=== PATIENT | male | born 2000 | race African-American/Black ===

== ENCOUNTER 2022-07-29 21:58 | Emergency (ER) | payer SELFPAY ==
[2022-07-29 23:42] LABS: #Eosinphils 0.2 thou/uL (0.0-0.7); #Lymphocytes 2.5 thou/uL (1.20-3.40); %Basophils 0.7 % (0.0-1.0); %Eosinophils 2.7 % (0.0-10.0); %Lymphocytes 37.1 % (21.0-51.0); %Monocytes 14.9 % (0.0-10.0); %Neutrophils 44.6 % (42.0-75.0); Hemoglobin 14.2 g/dL (14.0-18.0); Mean Corpuscular HGB CONC 33.7 g/dL (32.0-36.0); Mean Corpuscular Hemoglobin 29.5 pg (27.0-31.0); Mean Corpuscular Volume 87.6 fl (78.0-98.0); Platelet Count 227 10x3/uL (130-400); RBC Distribution Width 11.4 % (11.5-14.5); Red Blood Cell (RBC) Count 4.82 mill/uL (4.70-6.10); White Blood Cell (WBC) Count 6.6 10x3/uL (4.8-10.8)
[2022-07-29 23:58] LABS: Bilirubin Negative (Negative); Blood, Urine Negative (Negative); Clarity Clear (Clear); Glucose, Urine (Dipstick) Normal (Negative); Ketone, Urine Negative (Negative); Leukocyte Negative Leu/uL (Negative); Nitrite Negative (Negative); Protein, Urine (Dipstick) Negative (Neg-Trace); Specific Gravity, Urine 1.028 (1.002-1.036); Urobilinogen Normal mg/dL (Less than 2); pH, Urine 6.5 (5.0-9.0)
[2022-07-30 00:01] LABS: ALT (SGPT) 14 U/L (8-55); AST (SGOT) 22 U/L (5-34); Albumin 4.5 g/dL (3.5-5.0); Alkaline Phosphatase 49 U/L (40-110); Anion Gap 13 mmol/L (10-20); BUN (Urea Nitrogen) 14 mg/dL (8.9-20.6); Bilirubin, Total 0.4 mg/dL (0.2-1.2); Calc. Creatinine Clearance 0 mL/min (70-130); Calcium 9.1 mg/dL (7.8-10.44); Carbon Dioxide 26 mmol/L (22-29); Chloride 104 mmol/L (98-107); Estimated GFR 104; Globulin 2.9 g/dL (2.4-3.5); Glucose 82 mg/dL (70-105); Lipase 47 U/L (8-78); Potassium 4.2 mmol/L (3.5-5.1); Protein, Total 7.4 g/dL (6.0-8.3); Sodium 139 mmol/L (136-145)
== END 2022-07-30 00:33 | disposition home or self-care (01) ==
LOC: ERS 21:58
DX: R10.9 Unspecified abdominal pain (principal); F17.290 Nicotine dependence, other tobacco product, uncomplicated
CPT/HCPCS: 36415; 80053; 81003; 83690; 85025; 99284

== ENCOUNTER 2022-12-24 07:31 | Emergency (ER) | payer SELFPAY | END 2022-12-24 08:13 | disposition home or self-care (01) | LOC: ERS 07:31 | DX: R11.10 Vomiting, unspecified (principal); F17.290 Nicotine dependence, other tobacco product, uncomplicated | CPT/HCPCS: 99283 ==

== ENCOUNTER 2023-01-15 16:47 | Emergency (ER) | payer SELFPAY | END 2023-01-15 17:29 | disposition home or self-care (01) | LOC: ERS 16:47 | DX: R51.9 Headache, unspecified (principal); F17.290 Nicotine dependence, other tobacco product, uncomplicated | CPT/HCPCS: 99283 ==

== ENCOUNTER 2023-03-17 16:30 | Emergency (ER) | payer SELFPAY | END 2023-03-17 17:01 | disposition home or self-care (01) | LOC: ERS 16:30 | DX: J20.9 Acute bronchitis, unspecified (principal); F17.290 Nicotine dependence, other tobacco product, uncomplicated | CPT/HCPCS: 99283 ==

== ENCOUNTER 2023-04-19 15:34 | Emergency (ER) | payer BC ==
[2023-04-19 16:47] LABS: SARS-CoV-2 NAA Rapid Test DETECTED (NotDetected)
== END 2023-04-19 17:33 | disposition home or self-care (01) ==
LOC: ERS 15:34
DX: U07.1 COVID-19 (principal); F17.290 Nicotine dependence, other tobacco product, uncomplicated
CPT/HCPCS: 99283

== ENCOUNTER 2023-06-16 16:03 | Emergency (ER) | payer BC, SELFPAY | END 2023-06-16 17:05 | disposition home or self-care (01) | LOC: ERS 16:03 | DX: R11.2 Nausea with vomiting, unspecified (principal); F17.290 Nicotine dependence, other tobacco product, uncomplicated | CPT/HCPCS: 99283 ==

== ENCOUNTER 2023-07-02 18:07 | Emergency (ER) | payer SELFPAY | END 2023-07-02 19:45 | disposition home or self-care (01) | LOC: ERS 18:07 | DX: Z00.00 Encounter for general adult medical examination without abnormal findings (principal); F17.290 Nicotine dependence, other tobacco product, uncomplicated | CPT/HCPCS: 99283 ==